=== PATIENT | female | born 1975 | race African-American/Black ===

== ENCOUNTER 2016-05-21 13:06 | Emergency (ER) | payer OTHER ==
--- NOTE | ~2016-05-21 | CR2 ---
[facility] A Service of [facility] & [facility] RADIOLOGY TEXT RESULTS PATIENT: KAITY MCCOY LOCATION: [facility] : 73 UNIT #: [id number] AGE: [address]: Edvin Serrato MD SEX: F ORDER DR: [id number] [facility] [address] [place], [place] [address] [id number] E MR#: [id number] Acc #: [id number] NAME: KAITY MCCOY. : 1975 SEX: F STUDY DATE/TIME: 05/21/2016 12:56 UNIT: [facility] ROOM: STUDY DESCRIPTION: CR Abdomen Acute Series Attending Physician: Edvin Serrato M.D. Ordering Physician: Ed Doctor [id number] [facility] Primary Care Physician: Star Rodriges M.D. MEDICAL IMAGING REPORT This report is preliminary unless electronic signature is present EXAM Acute abdominal series HISTORY Abdominal pain for 2-3 days. Chest pain and headache. FINDINGS PA view of the chest is compared to 12/08/2015. The heart and mediastinal contours are unchanged. The lungs are clear. The patient has prior hardware from scoliosis surgery. ABDOMEN: Upright and supine AP radiographs of the abdomen without comparison. The bowel gas pattern is not obstructed. No free air. IMPRESSION No acute findings. Nonobstructive bowel gas pattern. Dictated by... Samy Damon M.D. THIS IS AN ELECTRONICALLY VERIFIED REPORT Samy Damon M.D. at 05/22/2016 10:44 AM Dennis TD: 05/22/2016 09:12 JOB #: [id number] MEDICAL IMAGING REPORT Page 1 of 1 COPY
--- NOTE | ~2016-05-21 | EKG ---
PATIENT: KAITY MCCOY UNIT #: [id number] Ventricular Rate: 74 BPM Atrial Rate: 74 BPM P-R Interval: 130 ms QRS Duration: 84 ms Q-T Interval: 430 ms QTC Calculation(Bezet): 477 ms P Clifton: 64 degrees Calculated R Clifton: 86 degrees Calculated T Clifton: 6 degrees Diagnosis Line: Normal sinus rhythm Diagnosis Line: Nonspecific T wave abnormality Diagnosis Line: Prolonged QT Diagnosis Line: Abnormal ECG Diagnosis Line: When compared with ECG of 16-OCT-2014 01:54, Diagnosis Line: T wave inversion more evident in Inferior leads Diagnosis Line: T wave inversion less evident in Anterior leads Diagnosis Line: Confirmed by CHARLIE NARANJO MD ([id number]) on 05/24/2016 Diagnosis Line: 10:37:13 PM INTERPRETING MD: MARCELLA MONTERO
[2016-05-21 12:49] LABS: BASOPHIL# 0.1 X10e3 (0-0.3); BASOPHIL% 1.2 % (0-2.5); EOSINOPHIL# 0.5 X10e3 (0-0.7); EOSINOPHIL% 4.5 % (0.0-7.0); HEMATOCRIT 41.3 % (35.0-45.0); HEMOGLOBIN 13.5 gm/dL (12.0-16.0); LYMPHOCYTE# 3.6 X10e3 (1.0-3.5); MEAN CELL VOLUME 95.7 FL (83-96); MEAN CORPUSCULAR HEMOGLOBIN 31.4 PG (28-34); MEAN CORPUSCULAR HGB CONC 32.8 g/dL (30-36); MEAN PLATELET VOLUME 7.5 FL (6.5-11.5); MONOCYTE# 0.4 X10e3 (0-1.0); MONOCYTE% 3.7 % (3.0-12.0); NEUTROPHIL# 5.9 X10e3 (1.5-7.1); NEUTROPHIL% 56.6 % (40-75); PLATELET COUNT 310 X10e3 (140-420); RED BLOOD COUNT 4.32 X10e (3.90-5.30); RED CELL DISTRIBUTION WIDTH 13.2 % (11.0-15.5); WHITE BLOOD COUNT 10.5 X10e3 (4.0-10.5)
[2016-05-21 12:51] LABS: DIFF IND NO
[~2016-05-21 13:06] MED LIST: BAYER CHEWABLE81 MG PO; CYMBALTA; DICLOFENAC PO; FLAGYL PO; IMITREX PO; IMITREX6 MG/0.52 SQ; LEVAQUIN250 MG PO; NORCO 10/3251 TAB PO; PROVENTIL17 GM IH; SYMBICORT INH; VIBRAMYCIN100 M1 PO
[2016-05-21 13:33] LABS: ALBUMIN SERUM 4.4 g/dL (3.5-5.0); ALKALINE PHOSPHATASE 72 U/L (32-92); ALT (SGPT) 9 U/L (10-40); AST (SGOT) 20 U/L (10-42); BILIRUBIN, DIRECT 0.2 mg/dL (0.0-0.2); BILIRUBIN,INDIRECT 0.3 mg/dL (0.0-0.9); BILIRUBIN,TOTAL 0.5 mg/dL (0.2-2.0); CALCIUM SERUM 9.6 mg/dL (8.4-10.2); CARBON DIOXIDE 26 mmol/L (22-31); CHLORIDE 105 mmol/L (100-111); CREATININE SERUM 0.7 mg/dL (0.6-1.4); GLOM FILT RATE Estimated 123.9 mL/min (>60); GLUCOSE FASTING 75 mg/dL (70-110); POTASSIUM 3.7 mmol/L (3.5-5.1); PROTEIN TOTAL SERUM 7.9 g/dL (6.0-8.3); SODIUM 142 mmol/L (135-145)
[2016-05-21 13:34] LABS: BLOOD UREA NITROGEN <5 mg/dL (9-23); BUN/CREATININE RATIO 7.14
[2016-05-21 13:36] LABS: POC - CKMB 1.9 ng/mL (0.0-7.9); POC - TROPONIN <0.05 ng/mL (<=0.05)
[2016-05-21 15:08] LABS: POC - CKMB 2.5 ng/mL (0.0-7.9); POC - TROPONIN <0.05 ng/mL (<=0.05)
== END 2016-05-21 15:38 | disposition home or self-care (01) ==
LOC: CED 13:06
PROVIDERS: Emergency Medicine
DX: R07.9 Chest pain, unspecified (principal); R10.9 Unspecified abdominal pain; J44.9 Chronic obstructive pulmonary disease, unspecified; G43.909 Migraine, unspecified, not intractable, without status migrainosus; F17.210 Nicotine dependence, cigarettes, uncomplicated; Z90.710 Acquired absence of both cervix and uterus; Z90.49 Acquired absence of other specified parts of digestive tract
CPT/HCPCS: 36415; 74022; 80048; 80076; 82553; 83690; 84484; 85025; 93005; 96372; 99284; J0500